=== PATIENT | male | born 1950 | race Caucasian/White ===

== ENCOUNTER → 2016-04-25 | Outpatient (CLI) | payer BC ==
[~2016-04-25] MED LIST: AMOXICILLIN 8751 TAB PO; KETOROLAC TROME10 MG PO; LIDODERM 5% PATC1 EA TP; LISINOPRIL10 MG PO; NORCO 325 MG-51 TA1 PO; PREDNISONE10 M1 PO
== END ==
LOC: LAB 11:57
DX: R10.817 Generalized abdominal tenderness (principal); K57.30 Diverticulosis of large intestine without perforation or abscess without bleeding

== ENCOUNTER → 2016-05-05 | Outpatient (CLI) | payer BC | LOC: RAD 08:20 | DX: R10.817 Generalized abdominal tenderness (principal) ==

== ENCOUNTER → 2018-02-01 | Outpatient (CLI) | payer BC ==
[2015-02-05 17:13] VITALS: BP 115/68
== END ==
LOC: RAD 14:27
DX: J01.90 Acute sinusitis, unspecified (principal); Z98.890 Other specified postprocedural states

== ENCOUNTER → 2018-02-02 | Outpatient (CLI) | payer MEDICARE, BC ==
[2015-02-05 17:13] VITALS: BP 115/68
[2018-02-02 08:00] LABS: ALBUMIN 4.2 g/dL (3.5-5.0); CALCIUM 9.1 mg/dL (8.4-10.2); POTASSIUM 4.3 mmol/L (3.6-5.0); TOTAL PROTEIN 7.3 g/dL (6.3-8.2)
== END ==
LOC: LAB 07:22
PROVIDERS: Family Medicine
DX: I10 Essential (primary) hypertension (principal); R73.03 Prediabetes; J01.00 Acute maxillary sinusitis, unspecified; H57.9 Unspecified disorder of eye and adnexa

== ENCOUNTER → 2018-02-08 | Outpatient (CLI) | payer MEDICARE, BC ==
[2015-02-05 17:13] VITALS: BP 115/68
[2018-02-08 09:29] LABS: HEMOGLOBIN 15.4 g/dL (13.5-18.0); MEAN PLATELET VOLUME 11.2 fl (7.4-10.4); RED BLOOD COUNT 5.05 M/mm3 (4.20-5.60); RED CELL DISTRIBUTION WIDTH 12.8 % (11.5-14.5); WHITE BLOOD COUNT 5.9 K/mm3 (4.8-10.8)
== END ==
LOC: RAD 09:00
PROVIDERS: Family Medicine
DX: I10 Essential (primary) hypertension (principal); H57.9 Unspecified disorder of eye and adnexa

== ENCOUNTER → 2019-02-28 | Outpatient (CLI) | payer MEDICARE, BC ==
[2015-02-05 17:13] VITALS: BP 115/68
[2019-02-28 08:04] LABS: ALBUMIN 4.1 g/dL (3.4-4.8); POTASSIUM 4.3 mmol/L (3.5-5.1)
[2019-02-28 08:06] LABS: CALCIUM 9.4 mg/dL (8.3-10.5)
[2019-02-28 08:07] LABS: TOTAL PROTEIN 7.4 g/dL (6.2-8.1)
[2019-02-28 08:09] LABS: TOTAL BILIRUBIN 1.5 mg/dL (0.2-1.2)
== END ==
LOC: LAB 07:38
PROVIDERS: Family Medicine
DX: Z12.5 Encounter for screening for malignant neoplasm of prostate (principal); J01.00 Acute maxillary sinusitis, unspecified; Q15.9 Congenital malformation of eye, unspecified; I10 Essential (primary) hypertension; R73.03 Prediabetes

== ENCOUNTER → 2019-03-07 | Outpatient (CLI) | payer MEDICARE, BC ==
[2015-02-05 17:13] VITALS: BP 115/68
[2019-03-07 08:21] LABS: HEMATOCRIT 46.2 % (42.0-52.0); HEMOGLOBIN 15.8 g/dL (13.5-18.0); MEAN PLATELET VOLUME 11.2 fl (7.4-10.4); RED BLOOD COUNT 5.21 M/mm3 (4.20-5.60); RED CELL DISTRIBUTION WIDTH 12.7 % (11.5-14.5); WHITE BLOOD COUNT 5.7 K/mm3 (4.8-10.8)
== END ==
LOC: LAB 07:38
PROVIDERS: Family Medicine
DX: Z13.6 Encounter for screening for cardiovascular disorders (principal); Z86.2 Personal history of diseases of the blood and blood-forming organs and certain disorders involving the immune mechanism; R73.03 Prediabetes

== ENCOUNTER → 2019-04-19 | Outpatient (CLI) | payer MEDICARE, BC ==
[2015-02-05 17:13] VITALS: BP 115/68
== END ==
LOC: RAD 07:58
DX: M47.812 Spondylosis without myelopathy or radiculopathy, cervical region (principal); J34.89 Other specified disorders of nose and nasal sinuses; R59.0 Localized enlarged lymph nodes; Z98.890 Other specified postprocedural states
CPT/HCPCS: Q9967

== ENCOUNTER → 2019-11-09 | Outpatient (CLI) | payer MEDICARE, BC ==
[2015-02-05 17:13] VITALS: BP 115/68
[2019-11-09 14:24] LABS: EOS # 0.1 (0.04-0.40); EOS % 1.7 % (0.0-4.0); HEMATOCRIT 44.9 % (42.0-52.0); HEMOGLOBIN 15.2 g/dL (13.5-18.0); LYMPH# 1.4 (1.50-4.00); MEAN CELL VOLUME 88 fl (78-100); MEAN CORPUSCULAR HEMOGLOBIN 30 pg (27-31); MEAN CORPUSCULAR HGB CONC 34 g/dL (33-37); MEAN PLATELET VOLUME 11.2 fl (7.4-10.4); MONO # 0.6 (0.20-0.80); NEU # 3.2 (1.40-6.50); PLATELET COUNT 138 K/mm3 (130-400); RED CELL DISTRIBUTION WIDTH 12.6 % (11.5-14.5); WHITE BLOOD COUNT 5.3 K/mm3 (4.8-10.8)
[2019-11-09 14:34] LABS: ALBUMIN 4.1 g/dL (3.4-4.8); POTASSIUM 4.4 mmol/L (3.5-5.1)
[2019-11-09 14:35] LABS: CALCIUM 9.2 mg/dL (8.3-10.5)
[2019-11-09 14:37] LABS: TOTAL PROTEIN 7.3 g/dL (6.2-8.1)
[2019-11-09 14:38] LABS: TOTAL BILIRUBIN 1.9 mg/dL (0.2-1.2)
[2019-11-09 15:33] LABS: ERYTHROCYTE SEDIMENTATION RATE 6 mm/hr (0-20)
== END ==
LOC: RAD 14:11
PROVIDERS: Family Medicine
DX: K57.30 Diverticulosis of large intestine without perforation or abscess without bleeding (principal)

== ENCOUNTER → 2020-02-18 | Outpatient (CLI) | payer MEDICARE, BC ==
[2015-02-05 17:13] VITALS: BP 115/68
== END ==
LOC: LAB 10:07
DX: J01.90 Acute sinusitis, unspecified (principal); U07.1 COVID-19

== ENCOUNTER → 2020-06-21 | Outpatient (CLI) | payer MEDICARE, BC ==
[2015-02-05 17:13] VITALS: BP 115/68
[2020-06-21 08:02] LABS: EOS # 0.2 (0.04-0.40); EOS % 3.8 % (0.0-4.0); HEMATOCRIT 47.4 % (42.0-52.0); HEMOGLOBIN 16.2 g/dL (13.5-18.0); LYMPH# 2.1 (1.50-4.00); MEAN CELL VOLUME 88 fl (78-100); MEAN CORPUSCULAR HEMOGLOBIN 30 pg (27-31); MEAN CORPUSCULAR HGB CONC 34 g/dL (33-37); MEAN PLATELET VOLUME 11.1 fl (7.4-10.4); MONO # 0.5 (0.20-0.80); NEU # 2.5 (1.40-6.50); PLATELET COUNT 124 K/mm3 (130-400); RED CELL DISTRIBUTION WIDTH 12.8 % (11.5-14.5); WHITE BLOOD COUNT 5.3 K/mm3 (4.8-10.8)
[2020-06-21 08:04] LABS: ALBUMIN 4.2 g/dL (3.4-4.8); POTASSIUM 4.3 mmol/L (3.5-5.1)
[2020-06-21 08:07] LABS: TOTAL PROTEIN 7.3 g/dL (6.2-8.1)
== END ==
LOC: LAB 07:41
PROVIDERS: Family Medicine
DX: Z13.6 Encounter for screening for cardiovascular disorders (principal); Z12.5 Encounter for screening for malignant neoplasm of prostate; I10 Essential (primary) hypertension; R73.03 Prediabetes

== ENCOUNTER → 2020-06-22 | Outpatient (CLI) | payer MEDICARE, BC ==
[2015-02-05 17:13] VITALS: BP 115/68
== END ==
LOC: LAB 09:22
DX: M79.18 Myalgia, other site (principal)

== ENCOUNTER 2020-07-13 13:02 | Outpatient (RCR) | payer MEDICARE, BC ==
[2015-02-05 17:13] VITALS: BP 115/68
== END 2020-08-07 17:00 | disposition home or self-care (01) ==
LOC: PT 13:02
DX: M51.34 Other intervertebral disc degeneration, thoracic region (principal)
CPT/HCPCS: G0283-GP

== ENCOUNTER → 2020-08-16 | Outpatient (CLI) | payer MEDICARE, BC | LOC: RAD 18:54 | DX: M51.35 Other intervertebral disc degeneration, thoracolumbar region (principal); M47.816 Spondylosis without myelopathy or radiculopathy, lumbar region; M47.817 Spondylosis without myelopathy or radiculopathy, lumbosacral region; M41.84 Other forms of scoliosis, thoracic region ==

== ENCOUNTER → 2020-10-26 | Outpatient (CLI) | payer MEDICARE, BC ==
[2020-10-26 09:24] LABS: URINE WBC 0 /hpf (0-3)
[2020-10-26 09:36] LABS: BASO # 0.03 (0.02-0.10); HEMATOCRIT 47.1 % (42.0-52.0); HEMOGLOBIN 15.6 g/dL (13.5-18.0); LYMPH# 1.45 (1.50-4.00); MEAN CELL VOLUME 91 fl (78-100); MEAN CORPUSCULAR HEMOGLOBIN 30 pg (27-31); MEAN CORPUSCULAR HGB CONC 33 g/dL (33-37); MEAN PLATELET VOLUME 11.2 fl (7.4-10.4); MONO # 0.36 (0.20-0.80); NEU # 3.14 (1.40-6.50); PLATELET COUNT 125 K/mm3 (130-400); RED BLOOD COUNT 5.16 M/mm3 (4.20-5.60); RED CELL DISTRIBUTION WIDTH 12.4 % (11.5-14.5); WHITE BLOOD COUNT 5.1 K/mm3 (4.8-10.8)
[2020-10-26 09:41] LABS: ALBUMIN 3.9 g/dL (3.4-4.8); POTASSIUM 4.5 mmol/L (3.5-5.1)
[2020-10-26 09:42] LABS: CALCIUM 9.5 mg/dL (8.3-10.5)
[2020-10-26 09:43] LABS: TOTAL PROTEIN 6.8 g/dL (6.2-8.1)
[2020-10-26 09:45] LABS: TOTAL BILIRUBIN 1.2 mg/dL (0.2-1.2)
[2020-10-26 10:46] LABS: URINE APPEARANCE CLEAR; URINE BILIRUBIN NEGATIVE (NEGATIVE); URINE BLOOD 50 ery/uL (NEGATIVE); URINE COLOR YELLOW; URINE KETONE NEGATIVE (NEGATIVE); URINE LEUKOCYTE ESTERASE NEGATIVE (NEGATIVE); URINE NITRATE NEGATIVE (NEGATIVE); URINE PROTEIN(semi-quant) NEGATIVE (NEGATIVE); URINE UROBILINOGEN NORMAL (NORMAL)
== END ==
LOC: LAB 09:21
PROVIDERS: Family Medicine
DX: R10.11 Right upper quadrant pain (principal)

== ENCOUNTER → 2020-10-30 | Outpatient (CLI) | payer MEDICARE, BC | LOC: RAD 07:22 | DX: R10.11 Right upper quadrant pain (principal) ==

== ENCOUNTER → 2020-11-01 | Outpatient (CLI) | payer MEDICARE, BC | LOC: LAB 08:35 | DX: R73.03 Prediabetes (principal); R10.11 Right upper quadrant pain | CPT/HCPCS: Q9967 ==

== ENCOUNTER → 2020-12-12 | Outpatient (CLI) | payer MEDICARE, BC | LOC: RAD 09:50 | DX: M47.814 Spondylosis without myelopathy or radiculopathy, thoracic region (principal); M41.84 Other forms of scoliosis, thoracic region; M41.86 Other forms of scoliosis, lumbar region; M47.816 Spondylosis without myelopathy or radiculopathy, lumbar region ==

== ENCOUNTER → 2021-08-23 | Outpatient (CLI) | payer MEDICARE, BC | LOC: LAB 15:52 | DX: U07.1 COVID-19 (principal) ==

== ENCOUNTER 2021-09-08 22:12 | Emergency (ER) | payer MEDICARE, BC ==
[~2021-09-08] VITALS: Ht 177.8 cm; Wt 93.0 kg
[2021-09-08 23:29] VITALS: BP 168/89
== END 2021-09-08 23:31 | disposition home or self-care (01) ==
LOC: ED 22:12
DX: H18.822 Corneal disorder due to contact lens, left eye (principal); H10.9 Unspecified conjunctivitis; Z86.16 Personal history of COVID-19; Z28.310 Unvaccinated for COVID-19

== ENCOUNTER → 2021-09-30 | Outpatient (CLI) | payer MEDICARE, BC ==
[2021-09-30 09:25] LABS: ALBUMIN 4.3 g/dL (3.4-4.8); POTASSIUM 4.5 mmol/L (3.5-5.1)
[2021-09-30 09:27] LABS: TOTAL PROTEIN 7.4 g/dL (6.2-8.1)
[2021-09-30 09:29] LABS: TOTAL BILIRUBIN 1.3 mg/dL (0.2-1.2)
== END ==
LOC: LAB 07:35
PROVIDERS: Family Medicine
DX: E11.9 Type 2 diabetes mellitus without complications (principal); I10 Essential (primary) hypertension

== ENCOUNTER → 2021-10-03 | Outpatient (CLI) | payer MEDICARE, BC ==
[2021-10-03 09:27] LABS: HEMATOCRIT 47.4 % (42.0-52.0); HEMOGLOBIN 15.8 g/dL (13.5-18.0); MEAN PLATELET VOLUME 10.9 fl (7.4-10.4); RED BLOOD COUNT 5.23 M/mm3 (4.20-5.60); RED CELL DISTRIBUTION WIDTH 12.4 % (11.5-14.5); WHITE BLOOD COUNT 4.3 K/mm3 (4.8-10.8)
== END ==
LOC: LAB 09:02
PROVIDERS: Family Medicine
DX: Z00.00 Encounter for general adult medical examination without abnormal findings (principal); I10 Essential (primary) hypertension; M79.651 Pain in right thigh; K57.32 Diverticulitis of large intestine without perforation or abscess without bleeding; R73.03 Prediabetes; M41.84 Other forms of scoliosis, thoracic region; E80.6 Other disorders of bilirubin metabolism; M79.10 Myalgia, unspecified site; L98.9 Disorder of the skin and subcutaneous tissue, unspecified; R00.1 Bradycardia, unspecified

== ENCOUNTER → 2022-01-30 | Outpatient (CLI) | payer MEDICARE, BC | LOC: RAD 13:48 | DX: I10 Essential (primary) hypertension (principal); R00.1 Bradycardia, unspecified ==

== ENCOUNTER → 2024-03-21 | Outpatient (CLI) | payer MEDICARE, BC ==
[2024-03-21 09:26] LABS: BASO # 0.04 K/mm3 (0.02-0.10); HEMATOCRIT 48.9 % (42.0-52.0); HEMOGLOBIN 16.2 g/dL (13.5-18.0); LYMPH# 1.52 K/mm3 (1.50-4.00); MEAN CELL VOLUME 91 fl (78-100); MEAN CORPUSCULAR HEMOGLOBIN 30 pg (27-31); MEAN CORPUSCULAR HGB CONC 33 g/dL (33-37); MEAN PLATELET VOLUME 11.4 fl (7.4-10.4); MONO # 0.34 K/mm3 (0.20-0.80); NEU # 3.03 K/mm3 (1.40-6.50); PLATELET COUNT 133 K/mm3 (130-400); RED BLOOD COUNT 5.37 M/mm3 (4.20-5.60); RED CELL DISTRIBUTION WIDTH 12.2 % (11.5-14.5)
[2024-03-21 09:31] LABS: ALBUMIN 4.3 g/dL (3.4-4.8)
[2024-03-21 09:32] LABS: CALCIUM 9.7 mg/dL (8.3-10.5)
[2024-03-21 09:33] LABS: TOTAL PROTEIN 7.6 g/dL (6.2-8.1)
[2024-03-21 09:35] LABS: TOTAL BILIRUBIN 1.4 mg/dL (0.2-1.2)
[2024-03-21 09:40] LABS: MAGNESIUM 1.86 mg/dL (1.60-2.60)
[2024-03-21 10:13] LABS: PH-URINE 5.5 (5.0 - 8.0); URINE APPEARANCE CLEAR (CLEAR); URINE BILIRUBIN 1+ (NEGATIVE); URINE BLOOD NEGATIVE (NEGATIVE); URINE COLOR YELLOW (YELLOW); URINE GLUCOSE NEGATIVE (NEGATIVE); URINE KETONE NEGATIVE (NEGATIVE); URINE NITRATE NEGATIVE (NEGATIVE); URINE PROTEIN(semi-quant) NEGATIVE (NEGATIVE)
[2024-03-21 10:14] LABS: URINE LEUKOCYTE ESTERASE NEGATIVE (NEGATIVE); URINE MUCUS PRESENT (NOT PRESENT); URINE WBC 0-1 /hpf (0-3)
== END ==
LOC: LAB 09:03
PROVIDERS: Internal Medicine
DX: I10 Essential (primary) hypertension (principal); R73.03 Prediabetes; E78.2 Mixed hyperlipidemia; K90.9 Intestinal malabsorption, unspecified; R00.1 Bradycardia, unspecified

== ENCOUNTER → 2024-03-29 | Outpatient (CLI) | payer MEDICARE, BC | LOC: LAB 10:25 | DX: Z12.5 Encounter for screening for malignant neoplasm of prostate (principal) ==